=== PATIENT | male | born 1965 | race African-American/Black ===

== ENCOUNTER 2020-05-14 08:11 | Day surgery (SDC) | payer SELFPAY ==
--- NOTE | 2020-05-14 08:38 | PCM.PREANE ---
Preanesthetic Assessment - Procedure Proposed Procedure: right cataract extraction - Anesthesia/Transfusion/Family Hx Anesthesia History: No Prior Anesthesia Family History of Anesthesia Reaction: No Transfusion History: No Prior Transfusion(s) Intubation History: Unknown - Review of Systems General: No Symptoms Pulmonary: No Symptoms Cardiovascular: No Symptoms Gastrointestinal: No Symptoms Neurological: No Symptoms Other: Reports: None - Physical Assessment NPO Status Date: 05/13/20 NPO Status Time: 18:00 Height: 65 cm ASA Class: 2 Mental Status: Alert & Oriented x3 Airway Class: Mallampati = 1 Dentition: Reports: Normal Dentition Thyro-Mental Finger Breadths: 3 Mouth Opening Finger Breadths: 4 ROM/Head Extension: Full Lungs: Clear to Auscultation, Normal Respiratory Effort Cardiovascular: Regular Rate, Regular Rhythm - Allergies Allergies/Adverse Reactions: Allergies Allergy/AdvReac Type Severity Reaction Status Date / Time No Known Allergies Allergy Verified 05/13/20 13:55 - Blood Blood Available: No - Anesthesia Plan Pre-Op Medication Ordered: None - Acknowledgements Anesthesia Type Planned: MAC Pt an Appropriate Candidate for the Planned Anesthesia: Yes Alternatives and Risks of Anesthesia Discussed w Pt/Guardian: Yes Pt/Guardian Understands and Agrees with Anesthesia Plan: Yes PreAnesthesia Questionnaire - HOME MEDS Home Medications: Home Meds . [No Known Home Meds] 05/13/20 [History] - CURRENT (IN HOUSE) MEDS Current Meds: Current Medications Brimonidine Tartrate (Brimonidine 0.2% Ophth Soln 5 Ml Bottle) 0 ml EYERT ASDIRECTED ROSANNE Stop: 05/14/20 18:00 Cefuroxime Sodium (Cefuroxime 10 Mg/Ml Syringe) 0 mg EYERT ASDIRECTED ROSANNE Stop: 05/14/20 18:00 Lidocaine HCl (Lidocaine 1% Pf 2 Ml Sdv) 0 ml INJECT ASDIRECTED ROSANNE Stop: 05/14/20 18:00 Phenylephrine HCl (Phenylephrine 2.5% Ophth Soln 2 Ml Bot) 0 ml EYERT ASDIRECTED ROSANNE Stop: 05/14/20 18:00 Pilocarpine HCl (Pilocarpine 4% Ophth Soln 15 Ml Bot) 0 ml EYERT ASDIRECTED ROSANNE Stop: 05/14/20 18:00 Polymyxin/Trimethoprim Sulfate (Polymyxin B/Trimethoprim 10 Ml Bottle) 0 ml EYERT ASDIRECTED ROSANNE Stop: 05/14/20 18:00 Tetracaine HCl (Tetracaine Hcl/Pf 0.5% 4 Ml Bottle) 0 ml EYEBOTH ASDIRECTED ROSANNE Stop: 05/14/20 18:00 Tropicamide (Tropicamide 1% Ophth Soln 15 Ml Bottle) 0 ml EYERT ASDIRECTED ROSANNE Stop: 05/14/20 18:00
[2020-05-14] MEDS: Polymyxin B/Trimethoprim 10 ML Bottle EYERT SCH ×4 (08:46→10:33)
[2020-05-14] MEDS: Brimonidine 0.2% Ophth Soln 5 ML Bottle EYERT SCH ×4 (08:55→10:33)
[2020-05-14] MEDS: Phenylephrine 2.5% Ophth Soln 2 ML Bot EYERT SCH ×6 (09:01→10:06)
[2020-05-14] MEDS: Tropicamide 1% Ophth Soln 15 ML Bottle EYERT SCH ×4 (09:05→09:50)
[2020-05-14] MEDS: Tetracaine HCl/PF 0.5% 4 ML Bottle EYEBOTH SCH ×3 (09:30→10:16)
[2020-05-14] MEDS: Cefuroxime 10 MG/ML SYRINGE EYERT SCH ×2 (09:31→10:32)
[2020-05-14] MEDS: Lidocaine 1% PF 2 ML SDV INJECT SCH ×2 (09:31→10:16)
[2020-05-14] MEDS: Pilocarpine 4% Ophth Soln 15 ML Bot EYERT SCH ×2 (09:31→10:33)
--- NOTE | 2020-05-14 10:15 | PCM48HPAN ---
Post Anesthesia Note - EVALUATION WITHIN 48HRS OF ANESTHETIC Vital Signs in Normal Range: Yes Patient Participated in Evaluation: Yes Respiratory Function Stable: Yes Airway Patent: Yes Cardiovascular Function Stable: Yes Hydration Status Stable: Yes Pain Control Satisfactory: Yes Nausea and Vomiting Control Satisfactory: Yes Mental Status Recovered: Yes Vital Signs: Last Vital Signs Temp 36.4 C 05/14/20 08:00 Pulse 98 05/14/20 08:00 Resp 20 05/14/20 08:00 BP 132/91 H 05/14/20 08:00 Pulse Ox 97 05/14/20 08:00
== END 2020-05-14 10:45 | disposition home or self-care (01) ==
LOC: JD.SDS 08:11
PROVIDERS: ATTEND Ophthalmology
DX: H25.89 Other age-related cataract (principal); H16.223 Keratoconjunctivitis sicca, not specified as Sjogren's, bilateral; H21.81 Floppy iris syndrome; H02.836 Dermatochalasis of left eye, unspecified eyelid; H02.833 Dermatochalasis of right eye, unspecified eyelid
CPT/HCPCS: 66984; C1780; J0697

== ENCOUNTER 2022-03-19 12:59 | Day surgery (SDC) | payer SELFPAY ==
[2022-03-19] MEDS: Polymyxin B/Trimethoprim 10 ML Bottle EYELF SCH ×2 (12:55→13:35)
[2022-03-19] MEDS: Brimonidine 0.2% Ophth Soln 5 ML Bottle EYELF SCH ×4 (13:00→14:54)
[2022-03-19] MEDS: Phenylephrine 2.5% Ophth Soln 2 ML Bot EYELF SCH ×6 (13:05→14:25)
[2022-03-19] MEDS: Tropicamide 1% Ophth Soln 15 ML Bottle EYELF SCH ×6 (13:11→14:54)
[2022-03-19] MEDS: Tetracaine HCl/PF 0.5% 4 ML Bottle EYEBOTH SCH ×5 (13:48→14:35)
[2022-03-19] MEDS: Lidocaine 1% PF 2 ML SDV INJECT SCH ×2 (13:48→14:34)
[2022-03-19] MEDS: Pilocarpine 4% Ophth Soln 15 ML Bot EYELF SCH ×2 (13:49→14:54)
[2022-03-19] MEDS: Cefuroxime 10 MG/ML SYRINGE EYELF SCH ×2 (13:49→14:53)
== END 2022-03-19 15:07 ==
LOC: JD.SDS 12:59
PROVIDERS: ATTEND Ophthalmology
DX: E11.36 Type 2 diabetes mellitus with diabetic cataract (principal); H21.542 Posterior synechiae (iris), left eye; H21.81 Floppy iris syndrome; E11.3293 Type 2 diabetes mellitus with mild nonproliferative diabetic retinopathy without macular edema, bilateral; Z96.1 Presence of intraocular lens; Z79.899 Other long term (current) drug therapy
CPT/HCPCS: 66982; A9270; C1780; J0697; J3490